=== PATIENT | male | born 1995 | race Caucasian/White ===

== ENCOUNTER 2020-01-15 10:55 | Emergency (ER) | payer MEDICAID ==
[~2020-01-15] VITALS: Ht 170.2 cm; Wt 88.5 kg
[2020-01-15 11:01] VITALS: BP 112/74
--- NOTE | 2020-01-15 11:15 | NUR ---
PT LAYING IN BED, NO SIGNS OF DISTRES, NO COMPLAINTS. VSS. WILL CONTINUE TO MONITOR AND WATCH FOR ORDERS.
--- NOTE | 2020-01-15 11:18 | NUR ---
PT SENT FROM [facility] BECAUSE HE WAS VOMITTING BLOOD. PT IS A POOR HISTORIAN, KNOWS MONTH AND YEAR BUT NOT DAY, [id number]. PT STATES HE DID NOT VOMIT BLOOD, THAT HE IS HERE FOR HIS FLU SHOT. PT HAS NO COMPLAINTS.
[2020-01-15] MEDS ORDERED: SODIUM CHLORIDE 0.9% 1,000ML IVBOLUS ONE (12:30)
[2020-01-15] MEDS ORDERED: PANTOPRAZOLE 40 MG IV IVPush ONE (12:30)
[2020-01-15] MEDS ORDERED: FAMOTIDINE 20 MG/2 ML IVPush ONE (12:30)
--- NOTE | 2020-01-15 12:30 | NUR ---
PT LAYING IN BED, NO SIGNS OF DISTRESS, WILL CONTINUE TO MONITOR.
[2020-01-15 12:54] LABS: BASOPHILS # (AUTO) 0.04 x10^3/uL (0-0.1); BASOPHILS % (AUTO) 1 % (0-1); EOSINOPHILS # (AUTO) 0.08 x10^3/uL (0-0.4); EOSINOPHILS % (AUTO) 1 % (1-7); LYMPHOCYTES # (AUTO) 1.98 x10^3/uL (1-3.4); LYMPHOCYTES % (AUTO) 31 % (22-44); MD NO; MEAN CORPUSCULAR HGB CONC 32.8 g/dL (33.2-36.2); MEAN CORPUSCULAR VOLUME 88.2 fL (81-97); MEAN PLATELET VOLUME 8.7 fL (7.4-10.4); MONOCYTES # (AUTO) 0.53 x10^3/uL (0.2-0.8); MONOCYTES % (AUTO) 8 % (2-9); NEUTROPHILS # (AUTO) 3.85 x10^3/uL (1.8-6.8); NEUTROPHILS % (AUTO) 59 % (42-75); PLATELET COUNT 233 x10^3/uL (130-400); RED BLOOD COUNT 5.37 x10^6/uL (4.38-5.82); RED CELL DISTRIBUTION WIDTH 14.8 % (9.4-14.8)
[2020-01-15] MEDS ORDERED: SODIUM CHLORIDE FLUSH 10ML SYR IVF ONE (13:00)
== END 2020-01-15 13:58 ==
LOC: ED 13:23
DX: R11.2 Nausea with vomiting, unspecified (principal); Z00.00 Encounter for general adult medical examination without abnormal findings
CPT/HCPCS: 36415; 85025; 99283; 99285